=== PATIENT | female | born 1945 | race Caucasian/White ===

== ENCOUNTER 2024-01-06 06:05 | Day surgery (SDC) | payer MEDICARE, BC ==
[2024-01-06] MEDS: CEFAZOLIN 2 GM/100 ML NaCl 2 GM/100 ML IVPB IV SCH (06:20)
[2024-01-06] MEDS: Lactated Ringers 1,000 ML IV SCH (06:20)
[2024-01-06] MEDS: Transderm Scop 1.5MG Patch TOP PRN (06:21)
[2024-01-06] MEDS: Pepcid 20 MG VIAL IV ONE (06:32)
[2024-01-06] MEDS: Reglan 10 MG/2 ML IV ONE (06:33)
[2024-01-06 06:35] VITALS: RESP 16; TEMP 98.4
[2024-01-06 06:37] LABS: Absolute Neutrophil Ct (ANC) 5.05 x10^3/uL (1.56-6.13); BASOPHIL % 0.5 % (0.1-1.2); Basophil (Absolute #) 0.04 x10^3/uL (0.01-0.08); Eosinophil % 2.5 % (0.7-5.8); Eosinophil (Absolute #) 0.19 x10^3/uL (0.04-0.36); Hematocrit 37.9 % (34.1-44.9); Hemoglobin 13.3 g/dL (11.2-15.7); IMMATURE GRAN # 0.03 x10^3u/L (0.001-0.031); IMMATURE GRAN % 0.4 % (0.001-0.429); Lymphocyte (Absolute #) 1.69 x10^3/uL (1.18-3.74); Lymphocytes % 21.9 % (19.3-51.7); Mean Cell Volume 83.7 fL (79.4-94.8); Mean Corpuscular Hemoglobin 29.4 pg (25.6-32.2); Mean Corpuscular Hgb Concent. 35.1 g/dL (32.2-35.5); Mean Platelet Volume 10.6 fL (9.4-12.3); Monocytes % 9.1 % (4.7-12.5); Neutrophil % 65.6 % (34.0-71.1); Platelet Count 207 x10^3/uL (182-369); Red Blood Count 4.53 x10^6/uL (3.93-5.22); Red Cell Distribution Width 14.1 % (11.7-14.4); White Blood Count 7.7 x10^3/uL (3.98-10.04)
[2024-01-06 07:05] LABS: ALBUMIN 3.8 g/dL (3.5-5.0); ANION GAP 11.4 MEQ/L (5-15); BILIRUBIN,TOTAL 0.6 mg/dL (0.2-1.3); Calcium 8.8 mg/dL (8.4-10.2); Creatinine 1 0.66 mg/dL (0.52-1.04); EST GLOMERULAR FILTRATION RATE 89.7 ML/MIN; Potassium 3.7 mmol/L (3.5-5.1); Total Protein 6.5 g/dL (6.3-8.2)
[2024-01-06] MEDS ORDERED: Xylocaine 1% Vial 30 ML PF IJ ONE (07:14)
[2024-01-06] MEDS ORDERED: Marcaine Mpf 0.5% Vial 30 Ml ONE (07:14)
[2024-01-06] MEDS ORDERED: SUBLIMAZE 100 MCG/2 ML ONE (07:50)
[2024-01-06] MEDS ORDERED: DIPRIVAN 200 MG/20 ML IV ONE ×4 (07:50→08:52)
[2024-01-06] MEDS ORDERED: Versed 2 MG/2 ML Injection ONE (07:50)
[2024-01-06] MEDS ORDERED: Decadron 4 MG INJ ONE (07:50)
[2024-01-06] MEDS ORDERED: Zofran 4 MG/2 ML VIAL ONE (07:50)
[2024-01-06] MEDS ORDERED: Xylocaine-Mpf 2% 5 Ml Vial ONE (07:50)
[2024-01-06] MEDS ORDERED: PHENYLEPHRINE HCL ONE (08:41)
[2024-01-06 10:34] VITALS: BP 139/80; PULSE 96; O2SAT 96
--- NOTE | 2024-01-06 23:09 | OP ---
SURGERY DATE/TIME: 01/06/2024 [id number] PREOPERATIVE DIAGNOSES: 1) Non-pressure ulceration lateral right leg. 2) Chronic nonhealing ulceration. 3) Right leg pain. 4) Venous insufficiency ulceration. 5) Venous insufficiency. POSTOPERATIVE DIAGNOSES: 1) Non-pressure ulceration lateral right leg. 2) Chronic nonhealing ulceration. 3) Right leg pain. 4) Venous insufficiency ulceration. 5) Venous insufficiency. PROCEDURES: 1) Excision of wound. 2) Delayed closure, right leg wound. SURGEON: Kishore Landon MD PRIVATE DETECTIVE: Kwasi Madrigal NP. HEMOSTASIS: Thigh tourniquet set to 300 mmHg for a total of 15 total tourniquet minutes. ANESTHESIA: General. ESTIMATED BLOOD LOSS: Approximately 15 mL. MATERIALS: 4-0 Vicryl, 3-0 nylon. INJECTABLES: 5 mL of 1:1 mixture of 1% lidocaine plain and 0.5% bupivacaine plain injected in a V-block type fashion to the right lower extremity. INDICATIONS FOR PROCEDURE: The patient is a very pleasant 78-year-old female, who presented to my service severely anxious regarding a wound that had developed to the lateral aspect of the right ankle. As a result, this is a very small wound that is pinpoint in nature; however, whenever the scab is disrupted, because of the varicose vein sitting directly underneath, she does have a profuse amount of bleeding and this has given her cause for concern. Seeking out consultation, she was warned about the risks, benefits and complications that could arise as a result of addressing this issue. Patient has been made aware of all this and wishes to proceed. These complications include, but are not limited to infection, hematoma, seroma, possibility of delayed wound healing, non-wound healing, failure of surgical intervention, possible need for further surgical intervention at a later date. No guarantees were provided as to the outcome of surgical intervention at this time. Plenty of time was allowed for the patient, as well as her daughter who is her power of family law attorney in [place], to their apparent satisfaction. No guarantees were provided as to the outcome of surgical intervention. It is at this time we decided to proceed. DESCRIPTION OF PROCEDURE AND FINDINGS: Patient was brought into the operating room, placed on the operating room table in the supine position. At this time, general anesthesia was administered until the patient was adequately sedated. A well-padded thigh tourniquet was applied to the patient right lower extremity and the foot was prepped and draped in the typical sterile fashion. At this point, a linear incision was made ellipsing in a 3-to-1 wound excision type fashion. Very quickly finding that there were a significant amount of varicosities sitting below the skin surface in the subcutaneous plane. Excessive amounts of cauterization were utilized, as well as hand ties with 4-0 Vicryl, controlling the hemostasis. From where the wound was excised, there was approximately 6 varicose veins entering in a web-like network surrounding the excision. Once this was performed, the majority of the varicose veins in this area were removed, cauterized or hand tied. Once this was achieved, 4-0 Vicryl was then utilized to coapt the subcutaneous edges in a deep buried stitch. Following this, 3-0 nylon was utilized in a horizontal mattress-type fashion to coapt the skin edges in an everted-type fashion. Following this, the wound was cleansed and dried. A dressing consisting of Betadine, Adaptic, 4 x 4, Kerlix, ABD and Raymundo was applied with moderate compression to the right lower extremity. Patient was then reversed from anesthesia and returned to the postoperative anesthesia care unit with vital signs stable and vascular status intact. Patient handled the anesthesia, as well as the procedure, without significant complication. Postoperative orders as indicated in the patient's discharge chart.
== END 2024-01-06 10:59 | disposition home or self-care (01) ==
LOC: SDC 06:05
PROVIDERS: ATTEND Podiatrist Foot & Ankle Surgery
DX: L97.818 Non-pressure chronic ulcer of other part of right lower leg with other specified severity (principal); M79.604 Pain in right leg; I87.2 Venous insufficiency (chronic) (peripheral)
CPT/HCPCS: 11042; 13160; 36415; 80053; 85025; 93005; 99100; J0690; J1100; J2250; J2371; J2405; J2704; J3010; A9270-GY